=== PATIENT | female | born 1960 | race Caucasian/White ===

== ENCOUNTER → 2018-02-21 | Outpatient (CLI) | payer OTHER ==
[~2018-02-21] MED LIST: APPLE CIDER VINEGAR PO; ATOR40TA PO; FLUO20TA25 PO; GEMF600T3 PO; MAGNESIUM PO; MULT-516 PO; ZOLP10TA PO; [UNRECOGNIZED DRUG - OTHER] PO; [UNRECOGNIZED DRUG - OTHER] PO
[2018-02-21 13:35] LABS: BASOPHILS # (AUTO) 0.03 x10^3/uL (0-0.1); BASOPHILS % (AUTO) 0 % (0-1); EOSINOPHILS # (AUTO) 0.05 x10^3/uL (0-0.4); EOSINOPHILS % (AUTO) 1 % (1-7); LYMPHOCYTES # (AUTO) 1.74 x10^3/uL (1-3.4); LYMPHOCYTES % (AUTO) 24 % (22-44); MD NO; MEAN CORPUSCULAR HEMOGLOBIN 30.1 pg (27.0-34.8); MEAN CORPUSCULAR HGB CONC 33.4 g/dL (32.4-35.8); MEAN CORPUSCULAR VOLUME 90.1 fL (80-100); MEAN PLATELET VOLUME 7.7 fL (7.4-10.4); MONOCYTES # (AUTO) 0.33 x10^3/uL (0.2-0.8); MONOCYTES % (AUTO) 5 % (2-9); NEUTROPHILS # (AUTO) 4.97 x10^3/uL (1.8-6.8); NEUTROPHILS % (AUTO) 70 % (42-75); PLATELET COUNT 361 x10^3/uL (130-400); RED BLOOD COUNT 4.42 x10^6/uL (3.82-5.3); RED CELL DISTRIBUTION WIDTH 12.3 % (9.6-15.2)
[2018-02-21 13:42] LABS: PROTHROMBIN TIME 10.4 Seconds (9.6-11.5)
[2018-02-21 13:46] LABS: ALANINE AMINOTRANSFERASE 38 U/L (12-78); ALBUMIN 4.4 g/dL (3.4-5.0); ANION GAP 8 mmol/L (5-15); CHLORIDE 101 mmol/L (98-107)
[2018-02-21 13:49] LABS: ALKALINE PHOSPHATASE 89 U/L (45-117); BILIRUBIN,TOTAL 0.4 mg/dL (0.2-1.0); TOTAL PROTEIN 7.7 g/dL (6.4-8.2)
== END | disposition home or self-care (01) ==
LOC: STAR 12:32
PROVIDERS: ATTEND Specialist
DX: Z01.818 Encounter for other preprocedural examination (principal); C54.1 Malignant neoplasm of endometrium
CPT/HCPCS: 36415; 71046; 80053; 85025; 85610; 85730; 86304; 93005

== ENCOUNTER → 2018-02-21 | Outpatient (CLI) | payer OTHER ==
[~2018-02-21] MED LIST changes: +OMNIPAQUE 350 MG/ML, 100ML BOTTLE ONE
== END | disposition home or self-care (01) ==
LOC: CFH 09:43
PROVIDERS: ATTEND Specialist
DX: K76.0 Fatty (change of) liver, not elsewhere classified (principal); C55 Malignant neoplasm of uterus, part unspecified; K86.2 Cyst of pancreas
CPT/HCPCS: 74177; Q9967

== ENCOUNTER 2018-03-07 08:43 | Inpatient (IN) | payer OTHER ==
[~2018-03-07] VITALS: Ht 160 cm; Wt 67.0 kg
[~2018-03-07 08:43] MED LIST changes: +BUPIVACAINE/PF-EPI 0.25% 1:200K ONE; +HEPARIN 1,000 UNITS/ML, 10ML ONE; +INDOCYANINE GREEN 25 MG VIAL ONE; -OMNIPAQUE 350 MG/ML, 100ML BOTTLE ONE
[2018-03-07] MEDS ORDERED: LACTATED RINGERS 1,000 ML IV SCH (08:57)
[2018-03-07] MEDS ORDERED: MIDAZOLAM 1 MG/ML, 2ML ONE (11:34)
[2018-03-07] MEDS ORDERED: FENTANYL PF 250 MCG/5ML ONE (11:34)
[2018-03-07] MEDS ORDERED: ROCURONIUM 10MG/ML,5ML ONE (12:16)
[2018-03-07] MEDS ORDERED: PROPOFOL 10 MG/ML, 20ML ONE (12:16)
[2018-03-07] MEDS ORDERED: DEXAMETHASONE 4 MG/ML, 1ML ONE ×2 (12:17)
[2018-03-07] MEDS ORDERED: CEFAZOLIN 1,000 MG ONE ×2 (12:18→12:19)
[2018-03-07] MEDS ORDERED: KETOROLAC 30 MG/1 ML ONE (13:50)
[2018-03-07] MEDS ORDERED: ONDANSETRON 2MG/ML, 2ML ONE (13:50)
[2018-03-07] MEDS ORDERED: SUGAMMADEX 200 MG/2 ML IVPush ONE (13:58)
[2018-03-07] MEDS ORDERED: ACETAMINOPHEN 650 MG/20.3 ML UDC ONE (14:34)
[2018-03-07] MEDS ORDERED: OXYcodone 5 MG/5 ML ORAL.SOL UDC ONE (14:34)
[2018-03-07] MEDS ORDERED: FENTANYL PF 100 MCG/2ML ONE (14:50)
[2018-03-07] MEDS: FENTANYL PF 100 MCG/2ML IV PRN ×2 (14:52→15:07)
[2018-03-07] MEDS ORDERED: ACETAMINOPHEN 325 MG TABLET PO PRN (15:00)
[2018-03-07] MEDS ORDERED: hydrALAzine 20 MG/ML, 1ML IV PRN (15:00)
[2018-03-07] MEDS ORDERED: LABETALOL 5MG/ML, 20ML IV PRN (15:00)
[2018-03-07] MEDS ORDERED: OXYcodone 5 MG/5 ML ORAL.SOL UDC PO PRN (15:00)
[2018-03-07] MEDS ORDERED: HYDROmorphone 1 MG/ML, 1ML IV PRN (15:00)
[2018-03-07] MEDS ORDERED: PROMETHAZINE 25 MG/ML, 1ML IV PRN (15:00)
[2018-03-07] MEDS ORDERED: ONDANSETRON 2MG/ML, 2ML IV PRN (15:00)
[2018-03-07] MEDS ORDERED: MEPERIDINE/PF 25MG/0.5ML IVPush PRN (15:00)
[2018-03-07] MEDS ORDERED: KETOROLAC MC SCH (19:30)
[2018-03-07] MEDS ORDERED: ONDANSETRON 2MG/ML, 2ML IVPush PRN (19:30)
[2018-03-07] MEDS ORDERED: MORPHINE MC SCH (19:30)
[2018-03-07] MEDS ORDERED: ZOLPIDEM 10MG TABLET PO PRN (20:00)
[2018-03-07] MEDS ORDERED: MAGNESIUM OXIDE 400 MG TABLET PO SCH (21:00)
[2018-03-07] MEDS ORDERED: ATORVASTATIN 40 MG TABLET PO SCH (21:00)
[2018-03-08] MEDS ORDERED: GEMFIBROZIL 600 MG TABLET PO SCH (09:00)
[2018-03-08] MEDS ORDERED: MULTIVITAMIN 1 TABLET PO SCH (09:00)
[2018-03-08] MEDS ORDERED: FLUOXETINE HCL 20 MG CAPSULE PO SCH (09:00)
== END 2018-03-07 22:00 | disposition home or self-care (01) | DRG 741 ==
LOC: ORIP 08:43 → 4NOR 18:59
PROVIDERS: ADMIT Specialist; ATTEND Specialist
PROC: 0UT7FZZ Resection of Bilateral Fallopian Tubes, Via Natural or Artificial Opening With Percutaneous Endoscopic Assistance (ICD-10-PCS; 2018-03-07)
PROC: 0UT2FZZ Resection of Bilateral Ovaries, Via Natural or Artificial Opening With Percutaneous Endoscopic Assistance (ICD-10-PCS; 2018-03-07)
PROC: 0DTU4ZZ Resection of Omentum, Percutaneous Endoscopic Approach (ICD-10-PCS; 2018-03-07)
PROC: 8E0W4CZ Robotic Assisted Procedure of Trunk Region, Percutaneous Endoscopic Approach (ICD-10-PCS; 2018-03-07)
PROC: 0UT9FZZ Resection of Uterus, Via Natural or Artificial Opening With Percutaneous Endoscopic Assistance (ICD-10-PCS; principal; 2018-03-07 11:00)
DX: C54.1 Malignant neoplasm of endometrium (principal); Z85.42 Personal history of malignant neoplasm of other parts of uterus; Z90.710 Acquired absence of both cervix and uterus
CPT/HCPCS: 36415; 86850; 86900; 88112; 88305; 88307; 88309; 88341; 88342; J0690; J1100; J1644; J1885; J2250; J2405; J2704; J3010; G0461

== ENCOUNTER 2018-04-11 09:07 | Day surgery (SDC) | payer OTHER ==
[~2018-04-11] VITALS: Ht 162.6 cm; Wt 65.1 kg
[~2018-04-11 09:07] MED LIST changes: -BUPIVACAINE/PF-EPI 0.25% 1:200K ONE; -GEMF600T3 PO; +GEMF600T4 PO; -HEPARIN 1,000 UNITS/ML, 10ML ONE; -INDOCYANINE GREEN 25 MG VIAL ONE
[2018-04-11] MEDS ORDERED: LACTATED RINGERS 1,000 ML IV SCH (09:44)
[2018-04-11] MEDS ORDERED: ACETAMINOPHEN 500 MG TABLET PO ONE (10:00)
[2018-04-11] MEDS ORDERED: GABAPENTIN 300 MG CAPSULE PO ONE (10:00)
[2018-04-11] MEDS ORDERED: SCOPOLAMINE PATCH, 1.5MG PATCH.TD72 TD ONE (10:00)
[2018-04-11 10:03] VITALS: BP 116/75
[2018-04-11] MEDS ORDERED: FENTANYL PF 250 MCG/5ML ONE (11:21)
[2018-04-11] MEDS ORDERED: MIDAZOLAM 1 MG/ML, 2ML ONE (11:21)
[2018-04-11] MEDS ORDERED: OXYcodone 5 MG/5 ML ORAL.SOL UDC PO PRN (11:30)
[2018-04-11] MEDS ORDERED: ONDANSETRON 2MG/ML, 2ML IV PRN (11:30)
[2018-04-11] MEDS ORDERED: DIPHENHYDRAMINE 50 MG/ML, 1ML IVPush PRN (11:30)
[2018-04-11] MEDS ORDERED: HYDROmorphone 1 MG/ML, 1ML IV PRN (11:30)
[2018-04-11] MEDS ORDERED: LABETALOL 5MG/ML, 20ML IV PRN (11:30)
[2018-04-11] MEDS ORDERED: PROMETHAZINE 25 MG/ML, 1ML IV PRN (11:30)
[2018-04-11] MEDS ORDERED: hydrALAzine 20 MG/ML, 1ML IV PRN (11:30)
[2018-04-11] MEDS ORDERED: LORazepam 2 MG/ML, 1ML IVPush PRN (11:30)
[2018-04-11] MEDS ORDERED: MEPERIDINE/PF 25MG/0.5ML IVPush PRN (11:30)
[2018-04-11] MEDS ORDERED: BUPIVACAINE/PF-EPI 0.25% 1:200K ONE (12:19)
[2018-04-11] MEDS ORDERED: SUCCINYLCHOLINE 20 MG/ML, 10ML ONE (13:53)
[2018-04-11] MEDS ORDERED: ONDANSETRON 2MG/ML, 2ML ONE (13:53)
[2018-04-11] MEDS ORDERED: CEFAZOLIN 1,000 MG ONE (13:53)
[2018-04-11] MEDS ORDERED: ROCURONIUM 10MG/ML,5ML ONE (13:53)
[2018-04-11] MEDS ORDERED: GLYCOPYRROLATE 0.2MG/1ML, 5ML ONE (13:53)
[2018-04-11] MEDS ORDERED: PROPOFOL 10 MG/ML, 20ML ONE (13:53)
[2018-04-11] MEDS ORDERED: DEXAMETHASONE 4 MG/ML, 1ML ONE (13:53)
[2018-04-11] MEDS ORDERED: NEOSTIGMINE 1 MG/ML, 10ML ONE (13:53)
[2018-04-11] MEDS ORDERED: FENTANYL PF 100 MCG/2ML ONE ×2 (14:48→16:03)
[2018-04-11] MEDS ORDERED: OXYcodone 5 MG/5 ML ORAL.SOL UDC ONE (15:42)
[2018-04-11] MEDS: FENTANYL PF 100 MCG/2ML IV PRN ×2 (16:00→16:24)
[2018-04-11] MEDS ORDERED: KETOROLAC 30 MG/1 ML ONE (16:19)
[2018-04-11] MEDS ORDERED: KETOROLAC 30 MG/1 ML IVPush SCH (16:30)
[2018-04-11] MEDS ORDERED: ZOLPIDEM 10MG TABLET PO PRN (19:30)
[2018-04-11] MEDS ORDERED: ONDANSETRON 2MG/ML, 2ML IV ONE (19:30)
[2018-04-11] MEDS ORDERED: MORPHINE SULFATE 4 MG/ML, 1ML IV PRN (19:30)
[2018-04-11] MEDS ORDERED: KETOROLAC 30 MG/1 ML IV SCH (19:30)
[2018-04-11] MEDS ORDERED: OXYcodone/APAP 7.5/325MG TABLET PO SCH (19:30)
[2018-04-11 20:11] VITALS: BP 105/66
[2018-04-11] MEDS ORDERED: MAGNESIUM OXIDE 400 MG TABLET PO SCH (21:00)
[2018-04-11] MEDS ORDERED: ATORVASTATIN 40 MG TABLET PO SCH (21:00)
[2018-04-12] MEDS ORDERED: GEMFIBROZIL 600 MG TABLET PO SCH (09:00)
[2018-04-12] MEDS ORDERED: MULTIVITAMIN 1 TABLET PO SCH (09:00)
[2018-04-12] MEDS ORDERED: FLUOXETINE HCL 20 MG CAPSULE PO SCH (09:00)
== END 2018-04-11 21:25 | disposition home or self-care (01) ==
LOC: OUT 09:07 → 4NOR 18:47 → OUT 21:25
PROVIDERS: ATTEND Specialist
DX: C54.1 Malignant neoplasm of endometrium (principal); G47.33 Obstructive sleep apnea (adult) (pediatric); F32.9 Major depressive disorder, single episode, unspecified; E78.00 Pure hypercholesterolemia, unspecified; R59.1 Generalized enlarged lymph nodes; Z90.710 Acquired absence of both cervix and uterus; Z90.722 Acquired absence of ovaries, bilateral; Z88.1 Allergy status to other antibiotic agents; Z98.890 Other specified postprocedural states; Z90.49 Acquired absence of other specified parts of digestive tract; Z72.89 Other problems related to lifestyle
CPT/HCPCS: 36415; 38573; 86850; 86900; 86923; 88305; J0330; J0690; J1100; J1885; J2250; J2405; J2704; J2710; J3010; J3490; J7120

== ENCOUNTER → 2018-05-16 | Outpatient (CLI) | payer OTHER | END | disposition home or self-care (01) | LOC: ROC 08:07 | PROVIDERS: ATTEND Radiology Radiation Oncology | DX: C54.1 Malignant neoplasm of endometrium (principal) | CPT/HCPCS: 99213; G0463 ==

== ENCOUNTER → 2018-06-13 | Outpatient (CLI) | payer OTHER | END | disposition home or self-care (01) | LOC: ROC 07:41 | PROVIDERS: ATTEND Radiology Radiation Oncology | DX: C55 Malignant neoplasm of uterus, part unspecified (principal) | CPT/HCPCS: 99213; G0463 ==

== ENCOUNTER → 2018-07-07 | Outpatient (CLI) | payer OTHER | END | disposition home or self-care (01) | LOC: ROC 08:35 | PROVIDERS: ATTEND Radiology Radiation Oncology | DX: Z08 Encounter for follow-up examination after completed treatment for malignant neoplasm (principal); C55 Malignant neoplasm of uterus, part unspecified; Z88.1 Allergy status to other antibiotic agents | CPT/HCPCS: 99212; G0463 ==

== ENCOUNTER → 2018-11-30 | Outpatient (CLI) | payer OTHER ==
[~2018-11-30] MED LIST changes: -GEMF600T4 PO; +GEMF600T8 PO; +OMNIPAQUE 350 MG/ML, 100ML BOTTLE ONE
== END | disposition home or self-care (01) ==
LOC: CFH 13:30
PROVIDERS: ATTEND Specialist
DX: C54.1 Malignant neoplasm of endometrium (principal); K76.0 Fatty (change of) liver, not elsewhere classified
CPT/HCPCS: 74177; Q9967

== ENCOUNTER → 2019-11-03 | Outpatient (CLI) | payer OTHER | END | disposition home or self-care (01) | LOC: CFH 09:05 | PROVIDERS: ATTEND Obstetrics & Gynecology | DX: C54.1 Malignant neoplasm of endometrium (principal); M50.10 Cervical disc disorder with radiculopathy, unspecified cervical region | CPT/HCPCS: 71260; 74177; 82565; Q9967 ==